=== PATIENT | female | born 1965 | race Caucasian/White ===

== ENCOUNTER 2016-05-10 12:50 | Inpatient (IN) | payer OTHER ==
[~2016-05-10] VITALS: Ht 162.6 cm; Wt 67.8 kg
[2016-05-10] MEDS ORDERED: METF500T4 PO (13:06)
[2016-05-10] MEDS ORDERED: LISI-662 PO (13:06)
[2016-05-10] MEDS ORDERED: ATOR40TA28 PO (13:06)
[2016-05-10] MEDS ORDERED: HYDR25TA PO (13:06)
[2016-05-10 13:21] LABS: GLUCOSE,POINT OF CARE 120 MG/DL (70-110)
[2016-05-10] MEDS ORDERED: SODIUM CHLORIDE 0.9% 1,000 ML IV ONE ×4 (13:30→20:30)
[2016-05-10] MEDS ORDERED: ONDANSETRON HCL 4 MG/2 ML VIAL IVP ONE (13:30)
[2016-05-10 13:46] LABS: BASOPHILS # (AUTO) 0.01 K/uL (0.00-0.20); BASOPHILS % (AUTO) 0.1 % (0.0-2.0); EOSINOPHILS # (AUTO) 0.02 K/uL (0.00-0.70); EOSINOPHILS % (AUTO) 0.07 % (1.0-6.0); HEMATOCRIT 41.1 % (36-46); HEMOGLOBIN 13.5 g/dL (12.0-16.0); LYMPHOCYTES # (AUTO) 0.9 K/uL (1.0-4.8); LYMPHOCYTES % (AUTO) 4.2 % (22.0-44.0); MEAN CORPUSCULAR HEMOGLOBIN 25.6 pg (26.0-34.0); MEAN CORPUSCULAR HGB CONC 32.8 G/dL (31.0-37.0); MEAN CORPUSCULAR VOLUME 78 fL (80-100); MONOCYTES # (AUTO) 0.5 K/uL (0.1-1.0); MONOCYTES % (AUTO) 2.3 % (2.0-9.0); NEUTROPHILS # (AUTO) 19.9 K/uL (1.8-7.7); PLATELET COUNT (AUTO) 314 K/uL (150-450); RED BLOOD CELL COUNT(AUTO) 5.27 MIL/uL (4.00-5.20); RED CELL DISTRIBUTION WIDTH 14.4 % (11.5-14.5); WHITE BLOOD COUNT (AUTO) 21.3 K/uL (4.5-11.0)
[2016-05-10 13:48] LABS: NEUTROPHILS % (AUTO) 93.3 % (40.0-70.0)
[2016-05-10 13:49] LABS: RBC MORPHOLOGY COMMENT NORMAL RBC MORPH
[2016-05-10 13:58] LABS: ANION GAP 12 mmol/L (8-16); CALCIUM, TOTAL 9.3 mg/dL (8.8-10.5); CARBON DIOXIDE 30 mmol/L (22-29); CHLORIDE 100 mmol/L (98-107); CREATININE 0.95 mg/dL (0.60-1.30); GLOMERULAR FILTR. RATE CALC > 60 mL/min (>60); POTASSIUM 3.2 mmol/L (3.5-5.1); SODIUM SERUM 142 mmol/L (136-145); UREA NITROGEN, BLOOD 16 mg/dL (7-18)
[2016-05-10 14:04] LABS: ALANINE AMINOTRANSFERASE 48 U/L (12-78); ALBUMIN 4.2 g/dL (3.4-5.0); ASPARTATE AMINOTRANSFERASE 25 U/L (15-37); BILIRUBIN,TOTAL 0.4 mg/dL (0.1-1.0); TOTAL PROTEIN, SERUM 8.4 g/dL (6.4-8.2)
[2016-05-10 14:49] LABS: APPEARANCE,URINE CLOUDY (CLEAR); GLUCOSE, URINE (UA) NEGATIVE (NEGATIVE); KETONES,URINE TRACE mg/dL (NEGATIVE); LEUKOCYTE ESTERASE ,URINE MODERATE (NEGATIVE); OCCULT BLOOD,URINE NEGATIVE (NEGATIVE); PH,URINE 5.5 (5.0-8.0); PROTEIN,URINE NEGATIVE (NEGATIVE)
[2016-05-10 14:50] LABS: SQUAMOUS EPITHELIAL CELL,UR Many /LPF (None Seen)
[2016-05-10 14:52] LABS: RBC,URINE 0-2 /HPF (0-2)
[2016-05-10] MEDS ORDERED: CefTRIAXone 1 GM/DEXTROSE 50 ML IV ONE (16:45)
[2016-05-10] MEDS ORDERED: ONDANSETRON HCL 4 MG/2 ML VIAL IVP PRN (17:15)
[2016-05-10] MEDS ORDERED: ACETAMINOPHEN 325 MG TABLET PO PRN ×2 (17:15→20:30)
[2016-05-10 18:33] VITALS: BP 143/84
[2016-05-10] MEDS ORDERED: POTASSIUM CHLORIDE 20 MEQ ER TABLET PO PRN (19:30)
[2016-05-10] MEDS ORDERED: POTASSIUM CHL 10 MEQ/WATER 50 ML IV PRN (19:30)
[2016-05-10] MEDS ORDERED: DEXTROSE 50%-WATER 25 GM/50 ML SYRINGE IVP PRN (19:30)
[2016-05-10 19:34] VITALS: BP 129/75
[2016-05-10] MEDS ORDERED: MAGNESIUM HYDROXIDE SUSPENSION 30 ML UDCUP PO PRN (20:30)
[2016-05-10] MEDS ORDERED: ZOLPIDEM TARTRATE 5 MG TABLET PO PRN (20:30)
[2016-05-10] MEDS ORDERED: ALBUTEROL SULFATE 2.5 MG/0.5 ML NEB SOLUTION NEB PRN ×2 (20:30→21:00)
[2016-05-10] MEDS ORDERED: OxyCODONE HCL/ACETAMINOPHEN 5-325 MG TABLET PO PRN (20:30)
[2016-05-10] MEDS: DOCUSATE SODIUM 100 MG CAPSULE PO SCH (21:00)
[2016-05-10] MEDS: INSULIN ASPART 100 UNITS/ML SQ PRN (21:40)
[2016-05-10 21:48] LABS: GLUCOSE COMMENT 1 Received Meds; GLUCOSE,POINT OF CARE 185 MG/DL (70-110)
[2016-05-10 22:12] LABS: GLUCOSE,POINT OF CARE 112 MG/DL (70-110)
[2016-05-10 23:04] VITALS: BP 119/77
[2016-05-11] MEDS: HEPARIN SODIUM,PORCINE 5,000 UNITS/ML VIAL SQ SCH ×3 (00:37→16:47)
[2016-05-11 04:50] VITALS: BP 126/64
[2016-05-11] MEDS: INSULIN ASPART 100 UNITS/ML SQ PRN ×2 (06:32→21:13)
[2016-05-11 06:41] LABS: GLUCOSE,POINT OF CARE 101 MG/DL (70-110)
[2016-05-11 07:06] LABS: BASOPHILS % (AUTO) 0.2 % (0.0-2.0); EOSINOPHILS % (AUTO) 1.9 % (1.0-6.0); HEMATOCRIT 33.6 % (36-46); HEMOGLOBIN 10.7 g/dL (12.0-16.0); LYMPHOCYTES # (AUTO) 2.2 K/uL (1.0-4.8); LYMPHOCYTES % (AUTO) 29.4 % (22.0-44.0); MEAN CORPUSCULAR HEMOGLOBIN 25.5 pg (26.0-34.0); MEAN CORPUSCULAR HGB CONC 31.9 G/dL (31.0-37.0); MEAN CORPUSCULAR VOLUME 80 fL (80-100); MONOCYTES # (AUTO) 0.5 K/uL (0.1-1.0); MONOCYTES % (AUTO) 7.1 % (2.0-9.0); NEUTROPHILS # (AUTO) 4.7 K/uL (1.8-7.7); NEUTROPHILS % (AUTO) 61.4 % (40.0-70.0); PLATELET COUNT (AUTO) 261 K/uL (150-450); RED BLOOD CELL COUNT(AUTO) 4.21 MIL/uL (4.00-5.20); RED CELL DISTRIBUTION WIDTH 13.9 % (11.5-14.5); WHITE BLOOD COUNT (AUTO) 7.6 K/uL (4.5-11.0)
[2016-05-11 07:19] VITALS: BP 128/75
[2016-05-11] MEDS: PANTOPRAZOLE SODIUM 40 MG DR TABLET PO SCH (08:59)
[2016-05-11] MEDS: DOCUSATE SODIUM 100 MG CAPSULE PO SCH ×2 (08:59→20:42)
[2016-05-11] MEDS ORDERED: PNEUMOCOCCAL VACCINE POLYVALENT 0.5 ML VIAL [PPSV23] IM ONE (09:15)
[2016-05-11 11:32] VITALS: BP 146/86
[2016-05-11 16:16] VITALS: BP 128/76
[2016-05-11] MEDS ORDERED: SODIUM CHLORIDE 0.9% 500 ML IV ONE (16:44)
[2016-05-11] MEDS: CefTRIAXone 1 GM/DEXTROSE 50 ML IV SCH (16:46)
[2016-05-11 17:22] LABS: GLUCOSE,POINT OF CARE 118 MG/DL (70-110)
[2016-05-11 18:31] LABS: GLUCOSE,POINT OF CARE 119 MG/DL (70-110)
[2016-05-11 19:29] VITALS: BP 137/77
[2016-05-11 21:21] LABS: GLUCOSE,POINT OF CARE 122 MG/DL (70-110)
[2016-05-11 23:37] VITALS: BP 126/74
[2016-05-12 04:32] VITALS: BP 130/74
[2016-05-12] MEDS: INSULIN ASPART 100 UNITS/ML SQ PRN ×3 (06:02→18:10)
[2016-05-12 06:56] LABS: GLUCOSE,POINT OF CARE 110 MG/DL (70-110)
[2016-05-12 07:04] VITALS: BP 145/68
[2016-05-12] MEDS: HEPARIN SODIUM,PORCINE 5,000 UNITS/ML VIAL SQ SCH ×3 (09:09→17:06)
[2016-05-12] MEDS: DOCUSATE SODIUM 100 MG CAPSULE PO SCH (09:10)
[2016-05-12] MEDS: PANTOPRAZOLE SODIUM 40 MG DR TABLET PO SCH (09:10)
[2016-05-12 11:50] VITALS: BP 129/79
[2016-05-12 15:59] VITALS: BP 155/82
[2016-05-12] MEDS: CefTRIAXone 1 GM/DEXTROSE 50 ML IV SCH (17:05)
[2016-05-12 18:56] LABS: GLUCOSE COMMENT 1 Juice/Food/D50 Given; GLUCOSE,POINT OF CARE 64 MG/DL (70-110)
[2016-05-12 19:02] LABS: GLUCOSE,POINT OF CARE 119 MG/DL (70-110)
[2016-05-12 19:02] LABS: GLUCOSE,POINT OF CARE 142 MG/DL (70-110)
== END 2016-05-12 19:20 | disposition home or self-care (01) | DRG 872 ==
LOC: EMS 12:52 → 6N 16:58
PROVIDERS: ADMIT Internal Medicine; ATTEND Internal Medicine
DX: A41.9 Sepsis, unspecified organism (principal); N39.0 Urinary tract infection, site not specified; E11.9 Type 2 diabetes mellitus without complications; E87.6 Hypokalemia
CPT/HCPCS: 82948; 82962; 83605; 84132; 87086; 90471; 93005; 96361; 96365; 96375; 99285; J0696; J1644; J2405; J7030; J7040